=== PATIENT | male | born 1970 | race Caucasian/White ===

== ENCOUNTER → 2018-01-31 17:58 | Outpatient (CLI) | payer OTHER, SELFPAY ==
--- NOTE | 2018-01-31 18:00 | DI.MRI.S_ITS ---
PROCEDURE: MR LUMBAR SPINE WO/W CON INDICATIONS: LOW BACK PAIN TECHNIQUE: Noncontrast sagittal T1 spin echo and T2 fast spin echo, sagittal STIR, axial T1 and T2 fast spin echo through the lumbar spine. In cases with scoliosis, additional coronal T2 fast spin echo may be performed. After the administration of contrast, sagittal and axial T1 spin echo with fat saturation through the lumbar spine. COMPARISON: [facility], , L-SPINE WITHOUT CONTRAST, 12/18/2014, 16:43. FINDINGS: Image quality: Excellent. Alignment and curvature: There is normal bony alignment. Marrow: Marrow is of normal overall signal. No acute vertebral body compression fractures. No suspicious marrow enhancement. Spinal cord: Conus medullaris terminates at the L1 level. Visualized spinal cord demonstrates normal signal, without suspicious enhancement. Paraspinous soft tissues: No paravertebral masses or abnormal enhancement. 1.1 cm cyst noted in the posterior inferior right lobe of the liver. L1-L2: Normal appearance. L2-L3: Normal appearance. L3-L4: Normal appearance. L4-L5: Loss of disc signal. Mild, diffuse disc bulge. Mild bilateral facet hypertrophy. Mild ligamentum flavum hypertrophy. Moderate narrowing of the central canal. Moderate bilateral neural foraminal narrowing. Focal high intensity zone noted in the right subarticular annulus compatible with a fissure. No neural impingement. L5-S1: Loss of disc signal and height. Mild, diffuse disc bulge. Small central disc protrusion. moderate bilateral facet hypertrophy. Mild narrowing of the central canal. Moderate to severe right and moderate left neural foraminal narrowing with slight flattening deformity of the exiting right L5 nerve root. IMPRESSION: 1. Moderate L5-S1 degenerative disc disease. Mild L4-L5 degenerative disease. 2. Mild L4-L5 facet arthropathy. Moderate L5-S1 facet arthropathy. 3. Moderate L4-L5 central canal narrowing. Mild L5-S1 central canal narrowing. 4. Moderate bilateral L4-L5 neural foraminal narrowing. Moderate to severe right and moderate left L5-S1 neural foraminal narrowing. 5. Slight flattening deformity of the exiting right L5 nerve root secondary to neural foraminal narrowing. Please correlate with clinical data. 6. L4-L5 disc annulus fissure. 7. No suspicious post contrast-enhancement. Dictated by: Kelsey Bowers MD, PhD on 01/31/2018 at 23:00 Approved by: Kelsey Bowers MD, PhD on 01/31/2018 at 23:07
== END ==
PROVIDERS: PCP Family Medicine; Visit Provider Family Medicine
DX: M54.5 Low back pain (principal); M51.36 Other intervertebral disc degeneration, lumbar region; M51.37 Other intervertebral disc degeneration, lumbosacral region; M47.816 Spondylosis without myelopathy or radiculopathy, lumbar region; M47.817 Spondylosis without myelopathy or radiculopathy, lumbosacral region; M48.061 Spinal stenosis, lumbar region without neurogenic claudication; M48.07 Spinal stenosis, lumbosacral region
CPT/HCPCS: 72158; A9579

== ENCOUNTER → 2018-11-11 11:02 | Outpatient (CLI) | payer OTHER, SELFPAY ==
[2018-11-11 11:28] LABS: Add Manual Diff / Slide Review NO; Basophils Absolute Auto 100 /uL (0-100); Eosinophils Absolute Auto 200 /uL (0-450); Eosinophils Percent Auto 4.1 % (2-4); Hematocrit 44.8 % (41-53); Hemoglobin 15.1 g/dL (13.5-17.5); Lymphocytes Absolute Auto 1400 /uL (1100-4500); Lymphocytes Percent Auto 28.5 % (25-40); Mean Corpuscular HGB Conc 33.6 % (30-36); Mean Corpuscular Hemoglobin 28.7 PG (26-34); Mean Corpuscular Volume 85.4 fL (80-100); Monocytes Absolute Auto 500 /uL (0-900); Monocytes Percent Auto 9.3 % (3-14); Neutrophils Absolute Auto 2800 /uL (1500-7000); Neutrophils Percent Auto 56.1 % (50-75); Platelet Count 270 X10^3/uL (150-400); Red Blood Cell Count 5.25 X10^6/uL (4.5-5.9); Red Cell Distribution Width 14.2 % (11.6-14.8)
[2018-11-11 11:42] LABS: Cholesterol 203 mg/dL (140-199); HDL Cholesterol 50 mg/dL (40-60); LDL Cholesterol Calculated 143 mg/dL (<100); Triglycerides 51 mg/dL (35-150)
[2018-11-11 11:47] LABS: Hemoglobin A1C% w Est Avg Glu 5.2 % (4.0-6.0)
[2018-11-11 12:46] LABS: TSH w/ Reflex to FT4 1.09 uIU/mL (0.47-4.68)
== END ==
PROVIDERS: PCP Student in an Organized Health Care Education/Training Program; Visit Provider Student in an Organized Health Care Education/Training Program
DX: Z13.1 Encounter for screening for diabetes mellitus (principal); E78.5 Hyperlipidemia, unspecified; R53.83 Other fatigue
CPT/HCPCS: 36415; 80061; 83036; 84443; 85025

== ENCOUNTER 2020-06-14 18:43 | Emergency (ER) | payer OTHER, SELFPAY ==
--- NOTE | 2020-06-14 18:48 | DI.RAD.S_ITS ---
PROCEDURE: XR ANKLE RT MIN 3V INDICATIONS: injury to ankle after kicking an object, no pain TECHNIQUE: 3 views of the ankle were acquired. COMPARISON: None. FINDINGS: Bones: No fractures or dislocations. Ankle mortise is normally aligned. No suspicious bony lesions. Soft tissues: No tibiotalar joint effusion. Achilles tendon appears normal. IMPRESSION: No visible fractures. Dictated by: Rosa Knight M.D. on 06/14/2020 at 19:40 Approved by: Rosa Knight M.D. on 06/14/2020 at 19:40
[2020-06-14 18:50] VITALS: BP 145/90; PULSE 79; RESP 14; TEMP 36.8; O2SAT 99; BMI 26.9
--- NOTE | 2020-06-14 19:01 | ED_ITS ---
HPI - Extremity Problem General Chief complaint: Extremity Injury, Lower Stated complaint: right foot injury Time Seen by Provider: 06/14/20 18:45 Source: patient Mode of arrival: Ambulatory Limitations: no limitations History of Present Illness HPI Narrative: 49-year-old male nonsmoker with noncontributory medical history presents with a chief complaint of an injury to his right posterior ankle after kicking a door. He is unclear if he did on accident or not but states he felt his foot bend awkwardly and he now has the pain is described and inability to point his toes down. He states he cannot walk because something feels weird in his foot. He denies any numbness or tingling. He denies any knee or hip pain. Denies any history of the same. MD Complaint: extremity pain Onset (ago): hour(s) Pain Consistency: constant Location: right Quality: burning Radiation: none Relieving factors: rest Exacerbating factors: range of motion, weight bearing, walking and palpation Associated symptoms: denies other symptoms Related Data Home Medications Medication Instructions Recorded Confirmed gabapentin 100 mg capsule 100 mg PO DAILY 05/31/18 05/04/19 meloxicam 15 mg tablet 15 mg PO DAILY 05/31/18 05/04/19 methocarbamol 500 mg tablet 500 mg PO QID 05/31/18 05/04/19 tramadol 50 mg tablet 50 mg PO Q6H 05/31/18 05/04/19 Previous Rx's Medication Instructions Recorded azithromycin 250 mg tablet See Rx Instructions PO .COMPLEX #6 05/31/18 tab meclizine 25 mg tablet 25 mg PO TID PRN #20 tab 05/04/19 ondansetron 8 mg disintegrating 8 mg PO Q8H #20 tab 05/04/19 tablet Allergies Allergy/AdvReac Type Severity Reaction Status Date / Time penicillin G Allergy Verified 06/14/20 18:56 [From Bicillin L-A] Review of Systems Constitutional Constitutional: Denies chills, Denies fatigue, Denies fever(s), Denies frequent falls, Denies lethargy and Denies weakness Eyes Eyes: Denies change in vision, Denies eye discharge, Denies irritation and Denies loss of vision ENT Ears, Nose, Mouth, and Throat: Denies change in voice, Denies dizziness, Denies neck pain, Denies sore throat and Denies throat swelling Cardiovascular Cardiovascular: Denies chest pain, Denies irregular heart rhythm, Denies lightheadedness, Denies palpitations, Denies dyspnea, Denies dyspnea on exertion and Denies orthopnea Respiratory Respiratory: Denies cough, Denies dyspnea, Denies dyspnea on exertion and Denies wheezing Gastrointestinal Gastrointestinal: Denies abdominal pain, Denies change in bowel habits, Denies diarrhea, Denies nausea and Denies vomiting Musculoskeletal Musculoskeletal: Reports abnormal gait, Reports arthralgias, Reports limited range of motion, Denies neck pain and Denies numbness Integumentary/Breasts Skin/Breast: Denies pruritus, Denies erythema, Denies rash and Denies wounds Neurologic Neurologic: Reports abnormal gait, Denies behavioral changes, Denies confusion, Denies dizziness, Denies frequent falls, Denies loss of vision, Denies numbness and Denies weakness Psychiatric Psychiatric: Denies anxiety, Denies behavioral changes, Denies confusion, Denies depression, Denies homicidal ideation and Denies suicidal ideation Endocrine Endocrine: Denies fatigue, Denies flushing and Denies palpitations Hematologic/Lymphatic Hematologic/Lymphatic: Denies easy bruising Allergic/Immunologic Allergic/Immunologic: Denies urticaria, Denies throat swelling and Denies wheezing Patient History Social History Smoking Status: Never smoker Smoking Status: Never smoker alcohol intake frequency: holidays/special occasions only Substance Use Type: does not use Exam Narrative Exam Narrative: GEN: AOx3 and in mild distress EYES: Pupils are equal, round, and reactive to light and accommodation. Extraoccular muscles are intact bilaterally. There is no subconjunctival hemorrhage or exudate. CHEST: Lungs are clear to auscultation bilaterally and free of wheezes, rales, or rhonchi. Heart rate is regular rhythm, there are no murmurs, clicks, rubs, or gallops. There is no chest wall tenderness. ABD: Abdomen is soft and nontender. There is no guarding or rebound. Bowel sounds are normal in all 4 quadrants. There is no mass or organomegaly. EXT: No bony tenderness or significant swelling of right foot or ankle. Pain with palpation of posterior ankle in the region of Achilles without expected anatomic landmarks, palpable gap in region of achilles. No plantarflexion with squeeze of R calf when examined in prone position Full painless ROM of all extremities with no loss of sensation or strength. SKIN: Warm, pink, and dry. No erythema or rash Initial Vital Signs Initial Vital Signs: Vital Signs Temperature 98.3 F 06/14/20 18:50 Pulse Rate 79 06/14/20 18:50 Respiratory Rate 14 06/14/20 18:50 Blood Pressure 145/90 H 06/14/20 18:50 Pulse Oximetry 99 06/14/20 18:50 Procedures Orthopedic Splinting/Casting Injury #1: Side: right Lower Extremity Injury Location: ankle and foot Lower Extremity Immobilizer: boot orthosis Other Orthopedic Equipment: crutches Post splinting neuro exam: intact Post splinting vascular exam: intact Placed by: Nursing Course Orders Ordered: ED Orders 06/14/20 18:48 XR ankle RT min 3V Stat 06/14/20 18:59 XR foot RT min 3V Stat Consultations Consultation #1: discussed with [facility] (Dr. Chan) who recommends boot orthosis and crutches with close follow up, stating patient will likely need surgery. Vital Signs Vital signs: Vital Signs - 8 hr 06/14/20 20:32 Pulse Rate 69 Respiratory Rate 16 Blood Pressure 121/71 Pulse Oximetry 100 MDM - Extremity (Nontraumatic) Imaging Data Extremity x-ray #1: Radiologist's Impression: Colby Chandler Fermin 49 M 1970 [address] [id number] ReportSigned Patient: Colby Chandler R#: [id number]: 1970Acct:[id number]/Sex: 49 / MDate of Service: 06/14/20Loc: EDAccession Number: [id number] Procedure: XR foot RT min 3V Ordering Provider: Kirt Hernandez D.O. PROCEDURE: XR FOOT RT MIN 3V INDICATIONS: kicked a door TECHNIQUE: 3 views of the foot were acquired. COMPARISON: None. FINDINGS: Bones: No fractures or dislocations. No suspicious bony lesions. Soft tissues: No tibiotalar joint effusion. Achilles tendon appears normal. IMPRESSION: No visible fractures. Dictated by: Rosa Knight M.D. on 06/14/2020 at 19:38 Approved by: Rosa Knight M.D. on 06/14/2020 at 19:39 Extremity x-ray #2: Radiologist's Impression: [address] [id number] ReportSigned Patient: Colby Chandler JMR#: [id number]: 1970Acct:[id number]/Sex: 49 / MDate of Service: 06/14/20Loc: EDAccession Number: [id number] Procedure: XR ankle RT min 3V Ordering Provider: Kirt Hernandez D.O. PROCEDURE: XR ANKLE RT MIN 3V INDICATIONS: injury to ankle after kicking an object, no pain TECHNIQUE: 3 views of the ankle were acquired. COMPARISON: None. FINDINGS: Bones: No fractures or dislocations. Ankle mortise is normally aligned. No suspicious bony lesions. Soft tissues: No tibiotalar joint effusion. Achilles tendon appears normal. IMPRESSION: No visible fractures. Dictated by: Rosa Knight M.D. on 06/14/2020 at 19:40 Approved by: Rosa Knight M.D. on 06/14/2020 at 19:40 Discharge Plan Departure Patient Disposition: Home Clinical Impression: Achilles rupture, right Qualifiers: Encounter type: initial encounter Qualified Code(s): S86.011A - Strain of right Achilles tendon, initial encounter Instructions: DI for Achilles Tendon Rupture Activity Restrictions/Additional Instructions: *You have been diagnosed with [right achilles tendon rupture] *What to do: *Take medications as directed *Follow up with [facility] for ongoing care. They took down your phone number and will likely call you Tuesday. Please call them if you haven't heard from them by Tuesday afternoon *Return to ER if you should have any new, worsening or concerning symptoms Prescriptions: No Action meloxicam 15 mg tablet 15 mg PO DAILY RF: 0 tramadol 50 mg tablet 50 mg PO Q6H RF: 0 methocarbamol 500 mg tablet 500 mg PO QID RF: 0 gabapentin 100 mg capsule 100 mg PO DAILY RF: 0 azithromycin 250 mg tablet See Rx Instructions PO .COMPLEX Qty: 6 RF: 1 meclizine 25 mg tablet 25 mg PO TID PRN (Reason: vertigo) Qty: 20 RF: 0 ondansetron 8 mg tablet,disintegrating 8 mg PO Q8H Qty: 20 RF: 0 Referrals: Alia Duarte MD [Primary Care Provider] - Regi Chan MD [Physician] -
[2020-06-14 20:32] VITALS: BP 121/71; PULSE 69; RESP 16; O2SAT 100
== END 2020-06-14 20:50 | disposition home or self-care (01) ==
PROVIDERS: Emergency Provider Emergency Medicine; PCP Student in an Organized Health Care Education/Training Program
DX: S86.011A Strain of right Achilles tendon, initial encounter (principal); W22.8XXA Striking against or struck by other objects, initial encounter
CPT/HCPCS: 73610; 73630; 99283

== ENCOUNTER 2020-06-20 08:12 | Day surgery (SDC) | payer OTHER, SELFPAY ==
[2020-06-20] VITALS (8 sets, daily range): BP systolic 119–136; BP diastolic 54–86; PULSE 87–94; RESP 10–98; TEMP 36.4–36.9; O2SAT 94–99; BMI 26.9
[2020-06-20] MEDS: LACTATED RINGERS 1,000 ML 42 ML IV ×2 (08:24→09:48)
[2020-06-20 09:11] LABS: COVID19 -Nasal RAPID Negative (Negative)
[2020-06-20] MEDS: MIDAZOLAM 2 MG/2 ML VIAL IV (11:05)
[2020-06-20] MEDS: CEFAZOLIN 2 GM/100 ML FROZ.PIGGY IV (11:15)
--- NOTE | 2020-06-20 11:26 | PM.PREOP ---
Pre-operative Note COVID-19 COVID-19 status: Negative Interval Note History & Physical reviewed/Exam performed by Physician: Yes Changes to H&P: No
--- NOTE | 2020-06-20 11:27 | PM.OP.1 ---
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 He was evaluated in the emergency room and thought to have a probable Achilles rupture. He was seen in clinic where his exam and ultrasound confirmed an Achilles rupture and and is brought to the operating room for repair. Surgeon: Regi Chan Click Yes if Unassisted: Yes Anesthesia Type: General and Peripheral nerve block Operative Notes Findings: Complete Achilles rupture, good quality repair Specimen(s): none sent Prosthetic devices, grafts, tissues, transplants, or devices: FiberWire sutures Applied: cast(s) Estimated Blood Loss (mL): 100 Blood products transfused: none Tourniquet time (min): 43 Procedure in detail: The patient is brought to the operating room. He underwent induction of a general Anesthesia. his right lower extremity was prepped and draped in a standard sterile fashion. A time-out was performed and antibiotics were given. He was carefully positioned in the prone position and a high thigh tourniquet was applied. All bony prominences were carefully padded. Posterior incision was made just off of the Achilles tendon. Dissection was carried out through skin and subcutaneous tissues. The tendon sheath was opened slightly more medially. There was a complete tear of the Achilles tendon. Multiple FiberWire tapes were placed in the Achilles tendon in a Krackow style suture. The rupture was approximately 5 cm above the calcaneus. There was good quality tissue both distally and proximally. Tendon was meticulously repaired. Was happy with the repair was good quality. The sheath was repaired with interrupted Vicryl. Subcutaneous tissues were repaired with Vicryl and the skin was repaired with a running Monocryl and Steri-Strips. Marcaine was injected. A sciatic nerve block was done for postoperative pain management. Patient was placed in a short-leg cast in equinus. He tolerated the procedure well was transferred to recovery room in satisfactory condition. Complications: none Post-operative Condition: stable Disposition: Acute Care Plan for aftercare: Use crutches. Partial weight-bearing on the right lower extremity. Return to clinic in approximately 14 days for wound check. Bring your brace to clinic might be a candidate for application of a removable brace.
--- NOTE | 2020-06-20 11:59 | SUR.OPER ---
Prone on padded OR bed, head in foam head support, gel chest rolls, gel pad under knees, pillow under lower legs, toes free of pressure, arms secured on padded arm boards at <90 degrees abduction. Safety belt at thigh.
[2020-06-20] MEDS: BUPIVACAINE 0.5% (PF) VIAL 30 ML INJ (12:06)
--- NOTE | 2020-06-20 12:38 | PM.PROC.1 ---
Procedures Date/Time Date of procedure: 06/20/20 Time of procedure: 11:05 Nerve Block Time out performed: Yes Local anesthetic used: other (5mL 2% Lidocaine, 15mL 0.5% Ropivacaine) Location of anesthetic used: lateral popliteal Amount of anesthesia used (mL): 20 Nerve blocks: other (sciatic nerve) Procedure successful: Yes Patient tolerated procedure: well Complications: none Additional comments: RIGHT Ultrasound guided lateral popliteal sciatic nerve block for post operative pain management, as discussed with surgeon. Risks, benefits discussed with patient. Consent verified. Site marked by surgeon. Time out performed. Standard ASA monitors applied, NC O2, 2mg versed. Pt supine. Chloroprep. Sterile US sleeve and gel. Sciatic nerve identified proximal to popliteal fossa, at bifurcation. Lidocaine local skin wheal. 100mm x 21g Pajunk needle advanced with in-plane US guidance to nerve. Negative aspiration. 5mL 2% lidocaine with epi and 15mL 0.5% ropivacaine injected with intermittent negative aspiration. Good LA spread noted on US. No pain, no paresthesias. VSS. Tolerated well.
--- NOTE | 2020-06-20 13:07 | SUR.PHASEI ---
Pt arrived with patent airway, awoke w/o difficulty.
--- NOTE | 2020-06-20 13:20 | SUR.PHASEI ---
Pt now with shakes, rené toussaint applied. Dr Mullins made aware order for demerol obtained.
[2020-06-20] MEDS: MEPERIDINE 50 MG/ML INJ 12.5 MG IV (13:27)
[2020-06-20] MEDS: ACETAMINOPHEN 325 MG TABLET 975 MG PO (13:56)
--- NOTE | 2020-06-20 14:01 | SUR.PHASEI ---
Spoke with Dr. Chan about po pain meds, ordered tylenol, pt medicated. minimal c/o pain, shakes resolved soon after demerol given. To OPD, stable.
== END 2020-06-20 14:41 | disposition home or self-care (01) ==
PROVIDERS: PCP Student in an Organized Health Care Education/Training Program; Referring Provider Orthopaedic Surgery; Visit Provider Orthopaedic Surgery
PROC: (CPT 27650; principal; 2020-06-20 09:45)
DX: S86.011A Strain of right Achilles tendon, initial encounter (principal); W22.8XXA Striking against or struck by other objects, initial encounter; Z20.822 Contact with and (suspected) exposure to COVID-19
CPT/HCPCS: 27650; 64450; 87635; J0690; J1100; J2175; J2250; J2405; J2704; J3010

== ENCOUNTER → 2021-03-08 16:47 | Outpatient (CLI) | payer OTHER, SELFPAY ==
--- NOTE | 2021-03-08 16:49 | DI.RAD.S_ITS ---
PROCEDURE: XR FINGER LT MIN 2V INDICATIONS: s/p fall TECHNIQUE: AP hand, 2 views of the 1st finger(s) acquired. COMPARISON: [facility], JUDY, FINGER RT, 10/31/2015, 9:50. FINDINGS: Bones: No fractures or dislocations. No suspicious bony lesions. Soft tissues: No suspicious soft tissue calcifications. IMPRESSION: No acute osseous abnormality. Dictated by: Thor Matute D.O. on 03/08/2021 at 16:51 Approved by: Thor Matute D.O. on 03/08/2021 at 16:56
== END ==
PROVIDERS: PCP Student in an Organized Health Care Education/Training Program; Referring Provider Physician Assistant; Visit Provider Physician Assistant
DX: M79.89 Other specified soft tissue disorders (principal)
CPT/HCPCS: 73140

== ENCOUNTER → 2021-09-07 14:13 | Outpatient (CLI) | payer OTHER, SELFPAY ==
[2021-09-07 16:00] LABS: COVID19 -Nasal RAPID Negative (Negative)
== END ==
PROVIDERS: PCP Student in an Organized Health Care Education/Training Program; Visit Provider Surgery
DX: Z01.812 Encounter for preprocedural laboratory examination (principal); Z20.822 Contact with and (suspected) exposure to COVID-19
CPT/HCPCS: 87635; C9803

== ENCOUNTER 2021-09-08 06:20 | Day surgery (SDC) | payer OTHER, SELFPAY ==
[2021-09-08] VITALS (7 sets, daily range): BP systolic 113–135; BP diastolic 59–84; PULSE 79–114; RESP 15–20; TEMP 36.1–36.6; O2SAT 95–100; BMI 26.9
--- NOTE | 2021-09-08 | PATH_ITS ---
[facility] Accession Number: [id number] . 01 Material submitted: . chest - LEFT CHEST WALL MASS . 01 Diagnosis: Left Chest Wall, Biopsy: Mature adipose tissue consistent with lipoma. [facility] 09/11/2021 1641 Local . 01 Electronically signed: . Tanisha Waite MD, Dermatopathologist NPI- [id number] . 01 Gross description: . The specimen is received in formalin, labeled left chest wall mass, and consists of a partially encapsulated excision of adipose tissue measuring 4.8 x 4.0 x 1.6 cm. The specimen is representatively submitted in two cassettes. ([id number]) /MRV 09/11/2021 1822 Local . 01 Pathologist provided ICD-10: D17.9 . 01 CPT . 658581 Specimen Comment: A courtesy copy of this report has been sent to [phone] Performed at: 01 [facility] [address] [place] [address], [place], [place] [id number] MD Quinn Nieves MD Phone: [phone]
[2021-09-08] MEDS: LACTATED RINGERS 1,000 ML 42 ML IV (07:13)
[2021-09-08] MEDS: ACETAMINOPHEN 325 MG TABLET 975 MG PO (07:38)
--- NOTE | 2021-09-08 07:49 | PM.HP.1 ---
History of Present Illness History of Present Illness Date Patient Seen: 09/08/21 Time Patient Seen: 07:49 Chief complaint: EXCISIONAL BX L CHEST WALL MASS Narrative: Vsybf-[id number]-old man with left chest wall soft tissue mass likely lipoma. See office note from July for details. Patient History Medical History ADHD Autism spectrum disorder Surgical History H/O Achilles tendon repair Hx of cervical spine surgery Family & Social History Social History: household members spouse Tobacco & Substance use: Smoking Status Never smoker alcohol intake current alcohol intake frequency holiday/special occasion Substance Use Type does not use Meds Home Medications and Allergies Home Medications Medication Instructions Recorded Confirmed Type cyclobenzaprine 10 mg tablet 10 mg PO Q8HR PRN #20 tab 06/20/20 09/08/21 Rx dextroamphetamine-amphetamine 20 20 mg PO DAILY #30 tab 08/05/21 09/08/21 Rx mg tablet dextroamphetamine-amphetamine 20 20 mg PO QPM #30 tab 08/05/21 08/05/21 Rx mg tablet dextroamphetamine-amphetamine 20 20 mg PO QPM #30 tab 08/05/21 08/05/21 Rx mg tablet trazodone 50 mg tablet See Rx Instructions PO BEDTIME PRN 08/05/21 09/08/21 Rx #60 tab Allergies Allergy/AdvReac Type Severity Reaction Status Date / Time bee venom protein (honey bee) Allergy Intermediate Verified 09/08/21 07:14 penicillin G Allergy Intermediate Rash Verified 09/08/21 07:49 [From Bicillin C-R] Exam Vital Signs (past 8 hours): - 09/08/21 07:16 Temperature 98 F Pulse Rate 79 Respiratory Rate 20 Blood Pressure 135/84 Pulse Oximetry 100 Oxygen Delivery Method Room Air Narrative Exam Narrative: Soft mobile 45 cm soft tissue mass in the left upper pectoral region. Assessment & Plan Assessment and plan (1) Mass of left chest wall: Status: Acute Plan Will proceed with excisional biopsy of left chest wall mass. He understands that there will be a scar over the Dragon tattoo. He would like to proceed. COVID-19 COVID-19 status: Negative Result date/Date tested (Pos, Neg/Pending): 09/07/21 Time Spent With Patient Critical Care time: I spent a total of [] minutes of critical care time on this patient's care today; this time is exclusive of procedural time.
--- NOTE | 2021-09-08 08:12 | SUR.OPER ---
Supine on padded OR bed, head on pillow, arm right secured on padded arm board at <90 degrees abduction, left arm tucked at side with arm in anatomically correct position, legs uncrossed, safety belt at abdomen, tape over blanket over lower legs. Directed and approved by surgical attending
[2021-09-08] MEDS: BUPIVACAINE 0.25% (PF) VIAL 30 ML INJ (08:17)
[2021-09-08] MEDS: LIDOCAINE 1% W/EPI 20 ML INJ (08:19)
--- NOTE | 2021-09-08 08:47 | P.OP_ITS ---
Operative Date/Time/Diagnoses Date of procedure: 09/08/21 Time of procedure: 08:48 Pre-op diagnosis: Left chest wall subcutaneous mass Post-op diagnosis: same Procedure & Clinicians Procedure: Excisional biopsy of left chest wall subcutaneous mass Same procedure as scheduled: Yes Surgeon: Benito Sarah Anesthesia Type: General Operative Notes Procedure in detail: The patient is a 50-year-old man who has a left chest wall subcutaneous mass that bothers him. The patient was brought to the operating room, placed on the table in the supine position and general anesthesia was induced via LMA. The left chest was prepped and draped in the usual fashion and a time-out was performed. Approximately 10 mL of lidocaine with epinephrine were injected over the mass and a 6 cm incision was made over the mass and dissection was carried down to the mass itself which appeared to be a lipomatous mass. The tissue planes were very clear and the mass was dissected off of the pectoral fascia. The mass was excised EN bloc. Additional Marcaine was injected into the pector al fascia and in the subcutaneous tissue around the incision. The wound was hemostatic. The wound was then closed with multiple interrupted 3-0 Vicryl dermal sutures followed by a running 4 Monocryl subcuticular closure. Steri- Strips and Telfa were applied. EBL: 5 mL Post-operative Condition: stable Disposition: PACU
== END 2021-09-08 09:40 | disposition home or self-care (01) ==
PROVIDERS: PCP Student in an Organized Health Care Education/Training Program; Referring Provider Surgery; Visit Provider Surgery
PROC: (CPT 21552; principal; 2021-09-08 07:45)
DX: D17.1 Benign lipomatous neoplasm of skin and subcutaneous tissue of trunk (principal); F84.0 Autistic disorder
CPT/HCPCS: 21552; J1100; J1885; J2250; J2405; J2704

== ENCOUNTER → 2022-10-29 08:27 | Outpatient (CLI) | payer OTHER, SELFPAY ==
--- NOTE | 2022-10-29 | DI.RAD.S_ITS ---
PROCEDURE: XR ELBOW LT MIN 3V INDICATIONS: Pain in left elbow TECHNIQUE: 3 views of the elbow were acquired. COMPARISON: None. FINDINGS: Bones: No fractures or dislocations. No suspicious bony lesions. Soft tissues: No elbow joint effusion. No suspicious soft tissue calcifications. IMPRESSION: No acute osseous abnormality. If symptoms persist, follow-up radiographs and/or CT or MRI may be helpful for further evaluation. Dictated by: Saad Brown M.D. on 10/29/2022 at 12:02 Approved by: Saad Brown M.D. on 10/29/2022 at 12:05
== END ==
PROVIDERS: PCP Registered Nurse; Referring Provider Registered Nurse; Visit Provider Registered Nurse
DX: M25.522 Pain in left elbow (principal)
CPT/HCPCS: 73080

== ENCOUNTER → 2023-08-12 08:48 | Outpatient (CLI) | payer OTHER, SELFPAY ==
--- NOTE | 2023-08-12 | DI.MRI.S_ITS ---
PROCEDURE: MR LUMBAR SPINE WO CON INDICATIONS: Sciatica, right side TECHNIQUE: Noncontrast sagittal T1 spin echo and T2 fast echo, sagittal STIR, and T2 fast spin echo through the lumbar spine. In cases with scoliosis, additional coronal T2 fast spin echo may be performed. COMPARISON: [facility], MR, L-SPINE WITHOUT CONTRAST, 12/18/2014, 16:43. FINDINGS: Image quality: Excellent. Alignment and Curvature: There is normal bony alignment. Bone Marrow: Marrow is of normal overall signal. No acute vertebral body compression fractures. Spinal Cord: Conus medullaris terminates at the L1 level. Visualized cord demonstrates normal signal and size. Paraspinous Soft Tissues: No paravertebral masses. T12-L1: Normal appearance. L1-L2: Mild disc desiccation. No central canal or neural foraminal stenosis. L2-L3: Mild disc desiccation. Minimal disc bulge. Mild facet arthropathy and thickening of ligamentum flavum. No central canal or neural foraminal stenosis. L3-L4: Mild disc desiccation height loss. Facet arthropathy and thickening of ligamentum flavum. No significant central canal or neural foraminal stenosis. L4-L5: Disc desiccation height loss. Mild diffuse disc bulge. New superimposed right foraminal disc protrusion. Facet arthropathy and thickening of ligamentum flavum. Stable moderate central canal stenosis. New moderate right neural foraminal stenosis. No left neural foraminal stenosis. New narrowing of the right lateral recess with abutment versus impingement of the descending right L5 nerve root. L5-S1: Disc desiccation and height loss. Diffuse disc bulge. Facet arthropathy and thickening of ligamentum flavum. No significant central canal stenosis. Moderate to severe right neural foraminal stenosis is progressed. Mild left neural foraminal stenosis is stable. IMPRESSION: 1. Degenerative changes of the lumbar spine as described above with progression at L4-5 and L5-S1. 2. At L4-5, there is a new right foraminal disc protrusion resulting in moderate right neural foraminal stenosis and narrowing of the right lateral recess with abutment versus impingement of the descending right L5 nerve root. Stable moderate central canal stenosis at this level. 3. Progression of moderate to severe right neural foraminal stenosis at L5-S1. 4. Otherwise, stable degenerative changes at other levels, as described above. Dictated by: Lefty Vallejo M.D. on 08/12/2023 at 10:43 Approved by: Lefty Vallejo M.D. on 08/12/2023 at 10:50
== END ==
PROVIDERS: PCP Registered Nurse; Referring Provider Registered Nurse; Visit Provider Registered Nurse
DX: M51.16 Intervertebral disc disorders with radiculopathy, lumbar region; M47.26 Other spondylosis with radiculopathy, lumbar region; M47.27 Other spondylosis with radiculopathy, lumbosacral region; M48.07 Spinal stenosis, lumbosacral region; M48.061 Spinal stenosis, lumbar region without neurogenic claudication
CPT/HCPCS: 72148